=== PATIENT | male | born 1985 | race Caucasian/White ===

== ENCOUNTER 2017-05-18 18:59 | Emergency (ER) | payer OTHER ==
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
[2017-05-18 19:18] VITALS: BP 148/87; PULSE 60; TEMP 98.3; BMI 59.6
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
== END 2017-05-18 20:25 | disposition home or self-care (01) ==
LOC: JERFT 18:59
DX: M54.2 Cervicalgia (principal); M25.511 Pain in right shoulder; M25.512 Pain in left shoulder; M25.531 Pain in right wrist; V54.5XXA Driver of pick-up truck or van injured in collision with heavy transport vehicle or bus in traffic accident, initial encounter; Y92.488 Other paved roadways as the place of occurrence of the external cause; Y93.89 Activity, other specified; Y99.8 Other external cause status
CPT/HCPCS: 73110-TC-RT-FY; 99281-25

== ENCOUNTER 2017-10-17 20:25 | Emergency (ER) | payer OTHER ==
[2017-10-17 20:36] VITALS: BP 119/77; PULSE 108; TEMP 98.1; BMI 25.0
[2017-10-17] MEDS ORDERED: IBUPROFEN 600 MG TABLET (FP) PO ONE ×2 (20:39→20:42)
--- NOTE | 2017-10-17 20:43 | PDOC ---
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[employer] Past History - Past Medical History Allergies/Adverse Reactions: Allergies Allergy/AdvReac Type Severity Reaction Status Date / Time No Known Allergies Allergy Verified 05/18/17 19:08 Home Medications: Ambulatory Orders NK [No Known Home Medication] 05/18/17 COPD: No - Suicide/Smoking/Psychosocial Hx Smoking History: Never smoked Have you smoked in the past 12 months: No Hx Alcohol Use: No Drug/Substance Use Hx: Yes (Marijuanna) Substance Use Type: Marijuana *Physical Exam - Vital Signs Last Vital Signs Temp Pulse Resp BP Pulse Ox 98.1 F 108 H 20 119/77 100 10/17/17 20:34 10/17/17 20:34 10/17/17 20:34 10/17/17 20:34 10/17/17 20:34 - Physical Exam General Appearance: Yes: Nourished, Appropriately Dressed HEENT: positive: EOMI, NATI Musculoskeletal: positive: Normal Inspection Extremity: positive: Normal Capillary Refill, Other (deformed left pinky at the PIP joint ) Integumentary: positive: Normal Color, Dry, Warm Neurologic: positive: Fully Oriented, Alert, Normal Mood/Affect, Normal Response , Motor Strength 5/5 Procedures - Joint Reduction Left Joint Reduction Site: left: Finger (5th digit pinky) Pre-Procedure NV Exam: normal Conscious Sedation: No Reduction Attempts: 1 Post Joint Reduction Film: joint reduced Splint: Yes (florencia taped) Medical Decision Making - Medical Decision Making 10/17/17 20:41 cc: left pinky dislocation playing basketball reduced without difficulty pt has FROM of the digit will florencia tape and give motrin *DC/Admit/Observation/Transfer Diagnosis at time of Disposition: Dislocation, finger Qualifiers: Encounter type: initial encounter Qualified Code(s): S63.259A - Unspecified dislocation of unspecified finger, initial encounter - Discharge Dispostion Disposition: HOME Condition at time of disposition: Improved - Referrals Referrals: Lan Leigh MD [Staff Physician] - - Patient Instructions Printed Discharge Instructions: DI for Finger Dislocation Additional Instructions: keep florencia taped for 24hrs take motrin every 6hrs for pain follow with for follow up if any worsening symptoms or increased pain - Post Discharge Activity
== END 2017-10-17 20:57 | disposition home or self-care (01) ==
LOC: JERFT 20:25
PROC: 0RSXXZZ Reposition Left Finger Phalangeal Joint, External Approach (ICD-10-PCS; principal; 2017-10-17)
DX: S63.277A Dislocation of unspecified interphalangeal joint of left little finger, initial encounter (principal); X58.XXXA Exposure to other specified factors, initial encounter; Y93.67 Activity, basketball; Y92.310 Basketball court as the place of occurrence of the external cause; Y99.8 Other external cause status
CPT/HCPCS: 99281-25